=== PATIENT | male | born 1955 | race Caucasian/White ===

== ENCOUNTER → 2018-04-09 11:36 | Outpatient (CLI) | payer OTHER, SELFPAY ==
--- NOTE | 2018-04-09 11:49 | XR_ITS ---
EXAM: XR thoracic spine 2V HISTORY: Mid back pain ITS.REASON: DJD Comparison: None FINDINGS: Normal alignment. No fracture or dislocation. No lytic or blastic change. Multilevel degenerative disc disease is present with anterior osteophytes noted. No acute fracture or dislocation. IMPRESSION: Thoracic spondylosis/degenerative change, no acute finding
--- NOTE | 2018-04-09 11:49 | XR_ITS ---
EXAM: XR lumbar spine 2-3V HISTORY: Low back pain ITS.REASON: DJD ORDERING PHYSICIAN: Adam Langston PATIENT AGE: 62 years COMPARISON: None FINDINGS: There is severe degenerative disc disease at L5-S1 with mild degenerative disc disease at L4-L5. There is mild anterolisthesis of L4 on L5 of 5 mm. Facet arthritic changes are present at L4-5 and L5-S1 and L3-L4. There is reversal of the lordosis at L4-L5. Anterior osteophytes are present involving the lumbar spine. No fracture or dislocation. No lytic changes. IMPRESSION: Lumbar spondylosis with degenerative disc disease, spondylosis, and facet arthritic change
== END ==
PROVIDERS: PCP Family Medicine; Visit Provider Orthopaedic Surgery
DX: M54.5 Low back pain (principal); M54.6 Pain in thoracic spine
CPT/HCPCS: 72070; 72100